=== PATIENT | male | born 1955 | race Caucasian/White ===

== ENCOUNTER 2025-05-25 10:01 | Outpatient (CLI) | payer OTHER ==
[~2025-05-25] VITALS: Ht 176.5 cm; Wt 81.6 kg
[~2025-05-25 10:01] MED LIST: HYDR-4353 PO
[2025-05-25] MEDS: albuterol 2.5 MG/3 ML nebule NEB ONE (10:37)
[2025-05-25 10:38] VITALS: PULSE 65; RESP 15; O2SAT 98
[2025-05-25 10:50] VITALS: PULSE 70; RESP 15
--- NOTE | 2025-05-25 16:46 | PROCEDURE NOTE - Respiratory ---
Procedure Note-Respiratory Providers to CC Copies To 1: KURT MONTOYA DO Procedure Name: This is a spirometry study dated May 25, 2025. The spirometry study was performed both before and after inhaled bronchodilator. Spirometry measurements: Both the forced vital capacity and the FEV1 are normal. The FEV1 ratio is slightly diminished. All of the measured flow rates are within the normal range. After inhaled bronchodilator was administered, there is not much change in the flow volume curve. Conclusion: Normal or very near normal spirometry study. The patient's asthma appears to be under excellent control on the current medication. We have no previous studies for comparison. PHILL JIMÉNEZ MD May 25, 2025 16:46
== END 2025-05-25 23:59 | disposition home or self-care (01) ==
LOC: RT 10:01
PROVIDERS: ATTEND Chiropractor
DX: J45.909 Unspecified asthma, uncomplicated (principal)
CPT/HCPCS: 94060; 94760

== ENCOUNTER 2025-05-31 11:48 | Outpatient (CLI) | payer OTHER ==
--- NOTE | 2025-05-31 13:28 | RADIOLOGY REPORT ---
EXAM: DI SHOULDER, COMPLETE (MIN 2 VWS) CLINICAL INDICATION: ARTHRITIS TECHNIQUE: DI SHOULDER, COMPLETE (MIN 2 VWS) Comparison: None FINDINGS/IMPRESSION: There is no evidence of acute fracture or dislocation. The visualized joint space is well maintained. The alignment is anatomical. There is no radiopaque foreign body.
--- NOTE | 2025-05-31 13:29 | RADIOLOGY REPORT ---
INDICATION: ARTHRITIS TECHNIQUE: 4 radiographic views of the BILATERAL wrist were obtained. COMPARISON: None FINDINGS: MOderate scapolunate degnerative changes. There is no evidence of acute fracture or disloc ation.The visualized joint space is well maintained.The alignment is anatomical.The surrounding soft tissues are unremarkable.There is no bony lesions or erosions identified. IMPRESSION: no acute fracture
--- NOTE | 2025-05-31 13:29 | RADIOLOGY REPORT ---
INDICATION: ARTHRITIS TECHNIQUE: 4 radiographic views of the BILATERAL wrist were obtained. COMPARISON: None FINDINGS: MOderate scapolunate degnerative changes. There is no evidence of acute fracture or disloc ation.The visualized joint space is well maintained.The alignment is anatomical.The surrounding soft tissues are unremarkable.There is no bony lesions or erosions identified. 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
--- NOTE | 2025-05-31 13:32 | RADIOLOGY REPORT ---
EXAM: DI KNEE W/OBLIQUES 3 VW CLINICAL INDICATION: ARTHRITIS TECHNIQUE: DI KNEE W/OBLIQUES 3 VW Comparison: None FINDINGS/IMPRESSION: There is no evidence of acute fracture or dislocation. Moderate bilateral knee OA. The alignment is anatomical. There is no radiopaque foreign body.
== END 2025-05-31 23:59 | disposition home or self-care (01) ==
LOC: RAD 11:48
PROVIDERS: ATTEND Chiropractor
DX: M17.0 Bilateral primary osteoarthritis of knee (principal); M19.032 Primary osteoarthritis, left wrist; M19.031 Primary osteoarthritis, right wrist
CPT/HCPCS: 73030; 73110; 73130; 73562